=== PATIENT | female | born 1990 | race Hispanic/Latino ===

== ENCOUNTER 2022-11-23 15:00 | Observation (INO) | payer BC ==
[~2022-11-23] VITALS: Ht 152.4 cm; Wt 67.3 kg
[2022-11-23 10:31] LABS: BASOPHILS % (AUTO) 0.4 % (0.0-5.0); EOSINOPHILS % (AUTO) 1.1 % (0.0-8.0); LYMPHOCYTES % (AUTO) 36.7 % (21.0-51.0); MEAN CORPUSCULAR HEMOGLOBIN 28.8 pg (27.0-33.0); MEAN CORPUSCULAR HGB CONC 33.6 g/dL (32.0-36.0); MEAN CORPUSCULAR VOLUME 85.7 fL (79-99); MONOCYTES % (AUTO) 5.8 % (3.0-13.0); NEUTROPHILS % (AUTO) 55.7 % (40.0-77.0); PLATELET COUNT (AUTO) 347 K/uL (130-400); RED BLOOD CELL COUNT(AUTO) 4.55 MIL/uL (4.00-5.50); RED CELL DISTRIBUTION WIDTH 13.2 % (11.0-15.5); WHITE BLOOD COUNT (AUTO) 7.3 K/uL (4.8-10.8)
[2022-11-23 10:42] LABS: CREATININE 0.7 mg/dL (0.5-1.5); POTASSIUM 3.7 mmol/L (3.5-5.1)
[2022-11-23 10:50] VITALS: BP 118/77
[~2022-11-23 15:00] MED LIST: ATOR20TA65 PO; FAMO20TA8 PO; GAS X PO; LISI10TA24 PO; OMEP40CA21 PO; SITA1TAB6 PO
[2022-11-24] VITALS (24 sets, daily range): BP systolic 99–127; BP diastolic 52–75
[2022-11-24] MEDS ORDERED: 0.9%NACL 1000ML 1,000 ML IV ONE (06:21)
[2022-11-24] MEDS ORDERED: CLINDAMYCIN IVPB 900MG/50ML 50 ML IV ONE (06:21)
[2022-11-24] MEDS ORDERED: GENTAMICIN SULFATE 80 MG/2 ML VIAL ONE (06:46)
[2022-11-24] MEDS ORDERED: MORPHINE PF 100MG/10ML AMP IV ONE (06:46)
[2022-11-24] MEDS ORDERED: THROMBIN-JMI 5000 UNIT/VIAL TP ONE ×2 (06:47→06:48)
[2022-11-24] MEDS ORDERED: LIDOCAINE PF 100MG/5ML (2%) SYRINGE 5ML ONE (06:48)
[2022-11-24] MEDS ORDERED: SUCCINYLCHOLINE CHLORIDE 20 MG/ML 10 ML VIAL ONE (06:48)
[2022-11-24] MEDS ORDERED: NEOSTIGMINE 5MG/5ML SYR IV ONE (06:49)
[2022-11-24] MEDS ORDERED: PROPOFOL 10 MG/ML 20ML VIAL IV ONE ×2 (06:49→10:27)
[2022-11-24] MEDS ORDERED: DEXAMETHASONE SOD PHOSPHATE 10MG/ML 1ML VIAL ONE ×2 (06:49→06:53)
[2022-11-24] MEDS ORDERED: MIDAZOLAM HCL 1 MG/ML 2ML VIAL ONE (06:49)
[2022-11-24] MEDS ORDERED: ONDANSETRON 4MG INJ ONE ×3 (06:49→12:02)
[2022-11-24] MEDS ORDERED: GLYCOPYRROLATE 1 MG/5 ML SYRINGE ONE (06:49)
[2022-11-24] MEDS ORDERED: FENTANYL CITRATE PF 50 MCG/1 ML 2ML VIAL ONE ×3 (06:50→10:06)
[2022-11-24] MEDS ORDERED: ROCURONIUM 10MG/1ML SYR 10 MG/ML ML ONE (06:50)
[2022-11-24] MEDS ORDERED: BUPIVACAINE/PF 0.25% 30ML VIAL IJ ONE (07:00)
[2022-11-24] MEDS ORDERED: LIDOCAINE 2%-EPI 1:200,000 20 ML VIAL IJ ONE (07:00)
[2022-11-24] MEDS ORDERED: MORPHINE 2 MG SYG IVP PRN (11:30)
[2022-11-24] MEDS ORDERED: SIMETHICONE 80 MG TAB.CHEW PO PRN (11:30)
[2022-11-24] MEDS: DEXAMETHASONE SOD PHOSPHATE 4 MG/ML 1ML VIAL IVP SCH ×3 (11:30→23:20)
[2022-11-24] MEDS ORDERED: PROMETHAZINE HCL 25 MG/ML 1ML AMPULE IM PRN (11:30)
[2022-11-24] MEDS ORDERED: HYDROCODONE/ACETAMINOPHEN 5/325 MG TAB PO PRN (11:30)
[2022-11-24] MEDS ORDERED: 0.9%NACL 10ML VIAL IVP PRN (11:30)
[2022-11-24] MEDS ORDERED: CLINDAMYCIN IVPB 900MG/50ML 50 ML IV SCH ×2 (11:30→16:30)
[2022-11-24] MEDS ORDERED: METOCLOPRAMIDE 10 MG/2 ML VIAL ONE (12:19)
[2022-11-24] MEDS ORDERED: SCOPOLAMINE HYDROBROMIDE 1 EACH ADH..PATCH TD ONE (12:19)
[2022-11-24] MEDS ORDERED: MEPERIDINE-PF 25 MG/ML SYG ONE (12:39)
[2022-11-24] MEDS: LACTATED RINGERS 1000ML 1,000 ML IV SCH (14:31)
[2022-11-24] MEDS: METFORMIN HCL PO SCH (19:41)
[2022-11-24] MEDS: SITAGLIPTIN PHOS PO SCH (19:41)
[2022-11-24] MEDS ORDERED: FAMOTIDINE 20MG TAB PO SCH (21:00)
[2022-11-24] MEDS ORDERED: LISINOPRIL 10 MG TABLET PO SCH (21:00)
[2022-11-24] MEDS ORDERED: ATORVASTATIN 20 MG TABLET PO SCH (21:00)
[2022-11-25] MEDS: LACTATED RINGERS 1000ML 1,000 ML IV SCH (00:27)
[2022-11-25 04:00] VITALS: BP 108/77
[2022-11-25] MEDS: DEXAMETHASONE SOD PHOSPHATE 4 MG/ML 1ML VIAL IVP SCH ×2 (05:33→11:30)
[2022-11-25] MEDS ORDERED: PANTOPRAZOLE 40 MG TAB DR PO SCH (07:30)
[2022-11-25 08:00] VITALS: BP 93/63
[2022-11-25] MEDS: SITAGLIPTIN PHOS PO SCH (09:00)
[2022-11-25] MEDS: METFORMIN HCL PO SCH (09:00)
[2022-11-25 12:00] VITALS: BP 102/64
== END 2022-11-25 13:45 | disposition home or self-care (01) ==
LOC: DAHIP 11-24 05:49 → 4CH 11-24 13:20 → EDSTATUS 11-24 15:00
PROVIDERS: ADMIT Neurological Surgery; ATTEND Neurological Surgery
DX: M51.16 Intervertebral disc disorders with radiculopathy, lumbar region (principal); Z20.822 Contact with and (suspected) exposure to COVID-19; M25.78 Osteophyte, vertebrae; E11.9 Type 2 diabetes mellitus without complications; E78.5 Hyperlipidemia, unspecified; I10 Essential (primary) hypertension; K21.9 Gastro-esophageal reflux disease without esophagitis; Z79.899 Other long term (current) drug therapy
CPT/HCPCS: 80048; 84703; 85025; 87426; 71045; 93005; 63030; 96376; 96372 ×2; 96365; 96375; 82948 ×6; 36415; 72020; G0378 ×25; G0379; A4510; A4663; J7120; A4344; J3010 ×3; J3490 ×7; J1100 ×5; J2710; J0330; J7030; J2550; J2001; J1580; J2250; J2704 ×2; J2274; J2405 ×3; J2175; J2765; A4649; A4215; A4223; A4222; A4221; A4600